=== PATIENT | male | born 1980 | race African-American/Black ===

== ENCOUNTER 2024-04-13 22:38 | Emergency (ER) | payer SELFPAY ==
[2024-04-13 22:39] VITALS: BP 192/100; PULSE 92; RESP 20; TEMP 36.7; O2SAT 97; BMI 36.6
--- NOTE | 2024-04-13 23:39 | ED_ITS ---
Discharge Plan Disposition Patient Disposition: Home, Self-Care Prescriptions Prescriptions: New methocarbamol 500 mg tablet 1,000 mg PO Q6H PRN (Reason: pain) Qty: 45 0RF lidocaine 5 % adhesive patch,medicated 1 patch topical DAILY PRN (Reason: pain) Qty: 30 0RF Rx Instructions: leave on most painful area for up to 12 hrs No Action amoxicillin 500 MG capsule 500 mg PO TID Qty: 30 0RF Referrals Follow up/Referrals: Provider,Referral, MD [Primary Care Provider] - See instructions Activity Restrictions/Add. Instructions Additional Instructions/Restrictions: Please take Tylenol and ibuprofen as needed for pain. Please use lidocaine patches and methocarbamol as needed for pain. Please follow-up with your primary care provider. Please return to the emergency department if you develop any new or worsening symptoms or become concerned for your health. Clinical Impressions Clinical Impression: Musculoskeletal strain Print Language Print Language: Slovak Discharge ED Provider: Hesham Edward General Adult HPI General Chief complaint: Abdominal Pain Stated complaint: Lower back pain left side Time Seen by Provider: 04/13/24 23:39 History of Present Illness HPI narrative: 44-year-old male without significant past medical history presents for left- sided pain and back pain. He reports that he participated in a softball tournament all weekend and thinks he overdid it. He sneezed earlier today and noticed some discomfort in his left paraspinal low back. Denies any midline pain. Denies any numbness tingling weakness of the lower extremities. He reports the pain sometimes radiates around to the front when he moves. He denies any urinary symptoms or history of kidney stones. Symptoms started shortly prior to arrival. Related Data Previous Rx's ?Medication ?Instructions ?Recorded amoxicillin 500 mg capsule 500 mg PO TID #30 caps 11/13/18 lidocaine 5 % topical patch 1 patch topical DAILY PRN pain #30 04/13/24 ea methocarbamol 500 mg tablet 1,000 mg (2 x 500 mg) PO Q6H PRN 04/13/24 pain #45 tabs Allergies Allergy/AdvReac Type Severity Reaction Status Date / Time Hydrocodone Allergy Mild NA-NAUSEA/V Uncoded 07/20/18 15:34 OMITING [facility] Disclaimer: The information contained in this section may have been updated after the patient was seen, as this information can be updated by other users. Social History Smoking Status: Current every day smoker tobacco type: cigarettes packs per day: 1 second hand exposure: Yes alcohol intake: former current occupational status: other Travel in the last 8 weeks: None current occupational exposures/hazards: No ROS Obtained: Yes All systems reviewed & no additional complaints except as documented Physical Exam General General appearance: alert and in no apparent distress Head Head exam: atraumatic and normocephalic Eye Eye exam: Present normal appearance, PERRL and EOMI ENT ENT exam: Present normal oropharynx and normal external ear exam Neck Neck exam: Present normal inspection and full ROM Chest Chest inspection: Present normal inspection and symmetric chest wall rise; Absent tenderness Respiratory Respiratory exam: Present normal lung sounds bilaterally; Absent respiratory distress Cardiovascular Cardiovascular exam: Present regular rate and normal rhythm Abdominal Exam Abdominal exam: Present soft; Absent distention, tenderness or guarding Extremities Exam Extremities exam: Present normal inspection; Absent edema or joint swelling Back Exam Back exam: Present normal inspection and tenderness (Left paraspinal) Neurological Exam Neurological exam: Present alert and oriented X3; Absent motor sensory deficit Psychiatric Psychiatric exam: Present normal affect and normal mood Skin Skin exam: Present warm, dry and normal color Lymphatic Lymphatic Findings: no adenopathy Medical Decision Making Medical Records Medical records reviewed: Yes I reviewed the patient's medical records. [place] Inquiry Pt receiving controlled substance: No [place] was queried for this patient: No Vital Signs: 04/13/24 22:39 04/13/24 23:50 Temperature 98.1 F 98.2 F Temperature Source Oral Oral Pulse Rate 81 Pulse Rate [Right] 92 H Respiratory Rate 20 16 Blood Pressure 156/106 H Blood Pressure [Right Arm] 192/100 H Blood Pressure Mean [Right Arm] 130 Blood Pressure Source Automatic Cuff Blood Pressure Position Sitting Blood Pressure Position [Right Arm] Supine 02 Sat by Pulse Oximetry 97 Oxygen Delivery Method Room Air Room Air Lab Data Lab results reviewed: Yes I reviewed the patient's lab results. Orders (Tests/Meds): ED MEDICATIONS Discontinued Medications Generic Name Dose Route Start Last Admin Trade Name Freq PRN Reason Stop Dose Admin Acetaminophen 1,000 mg 04/13/24 23:44 04/13/24 23:51 Acetaminophen 500mg Tab PO 04/13/24 23:45 1,000 mg ONCE ONE Administration Ketorolac Tromethamine 30 mg 04/13/24 23:44 04/13/24 23:54 Ketorolac 30mg/Ml Vial IM 04/13/24 23:45 Not Given ONCE ONE Lidocaine 1 each 04/13/24 23:44 04/13/24 23:52 Lidocaine 5% Transdermal Patch TP 04/13/24 23:45 1 each ONCE ONE Administration Methocarbamol 1,000 mg 04/13/24 23:44 04/13/24 23:52 Methocarbamol 500mg Tablet PO 04/13/24 23:45 1,000 mg ONCE ONE Administration Medical Decision Narrative: 44-year-old male without significant past medical history presents for left paraspinal low back pain after increased physical activity this week and. History was obtained via interactive discussion with patient. On arrival, patient is [afebrile, hemodynamically stable, satting appropriately, alert, oriented x4, GCS 15], moving all extremities spontaneously. Full physical exam performed and significant for left paraspinal tenderness Differential includes but is not limited to musculoskeletal strain, rib fracture, spinal cord pathology, kidney stone, pyelonephritis. Patient has no urinary symptoms or history of kidney stones to suggest a urinary source. History exam is most consistent with musculoskeletal strain. No evidence of spine or spinal cord pathology on history or exam. Given this, patient appropriate for discharge and outpatient management. He was given Robaxin, Tylenol, Toradol and lidocaine patch prior to discharge and discharged with prescription for lidocaine patches and Robaxin. Return precautions given.. Procedures Risk/Benefits of Procedure(s) Were Explained: Yes Critical Care Critical Care Time Critical Care Time: No
[2024-04-13 23:50] VITALS: BP 156/106; PULSE 81; RESP 16; TEMP 36.8; O2SAT 98
[2024-04-13] MEDS: ACETAMINOPHEN 500MG TAB 1000 MG PO (23:51)
[2024-04-13] MEDS: METHOCARBAMOL 500MG TABLET 1000 MG PO (23:52)
[2024-04-13] MEDS: LIDOCAINE 5% TRANSDERMAL PATCH 1 EACH TP (23:52)
== END 2024-04-14 00:04 | disposition home or self-care (01) ==
PROVIDERS: Emergency Provider Emergency Medicine
DX: S39.012A Strain of muscle, fascia and tendon of lower back, initial encounter (principal); X50.0XXA Overexertion from strenuous movement or load, initial encounter; Y93.69 Activity, other involving other sports and athletics played as a team or group
CPT/HCPCS: 96372; 99284

== ENCOUNTER 2025-03-25 14:47 | Outpatient (CLI) | payer SELFPAY ==
[2025-03-30 16:32] LABS: Mycoplasma genitalium, NAA Negative (Negative); Neisseria gonorrhoeae, NAA Negative (Negative)
== END 2025-03-25 23:59 | disposition home or self-care (01) ==
LOC: LAB.DROPOF 03-26 09:39
PROVIDERS: PCP Nurse Practitioner Family; Visit Provider Nurse Practitioner Family
DX: Z11.2 Encounter for screening for other bacterial diseases (principal); Z72.51 High risk heterosexual behavior
CPT/HCPCS: 87491; 87563; 87591; 87661